=== PATIENT | female | born 1960 | race Caucasian/White ===

== ENCOUNTER → 2016-06-11 | Outpatient (CLI) | payer OTHER ==
--- NOTE | 2016-06-11 09:42 | CT ---
CT Right Knee (YANELY Protocol) History: Preop hemiarthroplasty. Degenerative arthritis of right knee. Technique: Radiopaque reference kumar was placed lateral to the right leg. Using dose reduction technol ogy, multidetector helical CT was performed through the right knee. Additional limited CT imaging was performed through the right hip and right ankle. Imaging data were transferred to the surgical plann ing computer. Findings: Medial tibiofemoral space shows moderately severe loss of thickness accompanied by mild sub luxation. Osteophytes are mild. A tiny subchondral cyst is noted in the medial tibial plateau. Minima l osteophytes are found around the lateral tibiofemoral space. The trochlear groove of the distal fem ur is shallow. Small osteophytes are found at the margins of the patellofemoral space. Multiple super ficial varicose tributaries of great saphenous vein are noted medially. Impression: 1. Degenerative arthritis of right knee. 2. Shallow trochlear groove of distal femur, without subluxation.
== END ==
LOC: FIMAGING 07:44
PROVIDERS: ATTEND Orthopaedic Surgery
DX: Z01.818 Encounter for other preprocedural examination (principal); M17.11 Unilateral primary osteoarthritis, right knee

== ENCOUNTER → 2017-01-04 | Outpatient (CLI) | payer OTHER | LOC: FIMAGING 07:38 | PROVIDERS: ATTEND Internal Medicine | DX: Z12.31 Encounter for screening mammogram for malignant neoplasm of breast (principal) | CPT/HCPCS: G0202 ==

== ENCOUNTER → 2017-02-11 | Outpatient (CLI) | payer OTHER | LOC: FIMAGING 07:52 | PROVIDERS: ATTEND Orthopaedic Surgery | DX: Z01.818 Encounter for other preprocedural examination (principal); M17.11 Unilateral primary osteoarthritis, right knee ==

== ENCOUNTER 2017-02-27 14:35 | Emergency (ER) | payer OTHER ==
[2017-02-27 14:56] VITALS: BP 128/77; PULSE 68; RESP 18; TEMP 98.2; O2SAT 93
[2017-02-27] MEDS ORDERED: HYDROCODONE/APAP 5/325 TAB PO ONE (15:06)
--- NOTE | 2017-02-27 15:17 | EDPHY ---
H & P Stated Complaint: right shoulder pain Time Seen by Provider: 02/27/17 14:59 HPI/ROS: Chief Complaint: Right shoulder injury HPI: 56-year-old woman was riding on a horse trauma cart when she fell off, landing on her right shoulder. She did not hit her head. No loss of conscious. No neck pain. No prior injury. She is complaining of deformity to her right collar bone. Family History: non-contributory Physical Exam: General: Awake, alert, no distress Right shoulder: There is an obvious right distal clavicle deformity. The skin is elevated but is not tenting. She has sensation over the deltoid and in all dermatomes of the right arm. She has no proximal humerus deformity. No scapular tenderness. She has decreased range of motion secondary to pain. He has 2+ radial ulnar pulses. Sensations intact in the radial, median, and ulnar nerve distribution. Skin: No rash - Personal History Current Tetanus Diphtheria and Acellular Pertussis (TDAP): Yes - Medical/Surgical History Hx Asthma: No Hx Chronic Respiratory Disease: No Hx Diabetes: No Hx Cardiac Disease: No Hx Renal Disease: No Hx Cirrhosis: No Hx Alcoholism: No Hx HIV/AIDS: No Hx Splenectomy or Spleen Trauma: No Other PMH: none - Social History Smoking Status: Never smoked Constitutional: Initial Vital Signs Temperature (C) 36.8 C 02/27/17 14:53 Heart Rate 68 02/27/17 14:53 Respiratory Rate 18 02/27/17 14:53 Blood Pressure 128/77 H 02/27/17 14:53 O2 Sat (%) 93 02/27/17 14:53 O2 Delivery Mode Room Air Allergies/Adverse Reactions: No Known Allergies Allergy (Verified 01/25/17 10:13) Home Medications: Medication Instructions Recorded Acyclovir 1,200 mg PO DAILY PRN 01/18/17 Estrogens,Conjugated [Premarin 0.5 g VG Q7D PRN 01/18/17 Vaginal (*)] Herbals/Supplements -Info Only 1 ea PO DAILY 01/18/17 Hydrocodone/Acetaminophen 1 - 2 each PO Q4-6PRN PRN #10 02/27/17 [Hydrocodon-Acetaminophen 5-325] tablet Ondansetron Odt [Zofran Odt 4 mg 4 mg PO Q4 PRN #10 tab 09/23/17 (*)] Medical Decision Making - Diagnostics Imaging Results: Imaging Impressions Clavicle X-Ray 02/27/17 15:07 Impression: Acute displaced right mid shaft clavicle fracture in bayonet configuration. Midshaft comminuted clavicle fracture with significant displacement. Imaging: I viewed and interpreted images myself ED Course/Re-evaluation: Patient has a comminuted midshaft clavicle fracture. She has been placed in a sling. She already has an appoint with Dr. Casarez on Wednesday for a knee replacement. She will follow up with him in the office. - Data Points Medications Given: Discontinued Medications Hydrocodone Bitart/Acetaminophen (Butner 5/325) 2 tab PO EDNOW ONE Stop: 02/27/17 15:07 Last Admin: 02/27/17 15:15 Dose: 2 tab Departure - Departure Disposition: Home, Routine, Self-Care Clinical Impression: Clavicle fracture Condition: Good Instructions: Clavicle Fracture (ED) Additional Instructions: Keep your arm in the sling until you see orthopedics. Follow-up with your orthopedist on Wednesday. Return to the emergency department for increasing pain, numbness or tingling in your right arm calms coloration of your right arm the, or any other concerns. Referrals: Amadou Casarez MD [Medical Doctor] - As per Instructions Prescriptions: Hydrocodone/Acetaminophen [Hydrocodon-Acetaminophen 5-325] 1 - 2 each PO Q4- 6PRN PRN #10 tablet PRN Reason: Pain, Severe Ondansetron Odt [Zofran Odt 4 mg (*)] 4 mg PO Q4 PRN #10 tab PRN Reason: nausea
[2017-02-27] MEDS ORDERED: ONDANSETRON DISINTEGRATING 4 MG TAB ONE (15:55)
== END 2017-02-27 16:15 | disposition home or self-care (01) ==
LOC: CED 14:35
DX: S42.021A Displaced fracture of shaft of right clavicle, initial encounter for closed fracture (principal); V80.010A Animal-rider injured by fall from or being thrown from horse in noncollision accident, initial encounter
CPT/HCPCS: 73000-PO; A4565

== ENCOUNTER 2017-03-11 11:38 | Day surgery (SDC) | payer OTHER ==
[2017-03-11] MEDS ORDERED: LIDOCAINE 1% 2 ML INJ ID PRN (12:19)
[2017-03-11] MEDS ORDERED: LR 1,000 ML IV ONE (12:19)
[2017-03-11] MEDS ORDERED: BUPIVACAINE 0.5% 30 ML SDV ONE (12:47)
[2017-03-11] MEDS ORDERED: POLYMYXIN B SULFATE 500,000 UNIT/10 ML SYR IRR ONE (12:47)
[2017-03-11] MEDS ORDERED: ceFAZolin 2 GM/DEXTROSE 100 ML IV ONE (12:57)
--- NOTE | 2017-03-11 13:17 | PDANEPAE ---
ANE History of Present Illness 56 yo F here with R clavicle fx here for ORIF ANE Past Medical History - Cardiovascular History Hx Hypertension: No Hx Arrhythmias: No Hx Chest Pain: No Hx Coronary Artery / Peripheral Vascular Disease: No Hx CHF / Valvular Disease: No Hx Palpitations: No - Pulmonary History Hx COPD: No Hx Asthma/Reactive Airway Disease: No Hx Recent Upper Respiratory Infection: No Hx Oxygen in Use at Home: No Hx Sleep Apnea: No Sleep Apnea Screening Result - Last Documented: Negative - Neurologic History Hx Cerebrovascular Accident: No Hx Seizures: No Hx Dementia: No - Endocrine History Hx Diabetes: No - Renal History Hx Renal Disorders: No - Liver History Hx Hepatic Disorders: No - Neurological & Psychiatric Hx Hx Neurological and Psychiatric Disorders: No - Cancer History Hx Cancer: No - Congenital Disorder History Hx Congenital Disorders: No - GI History Hx Gastrointestinal Disorders: No - Other Health History Other Health History: osteoarthritis to right knee and hands - Chronic Pain History Chronic Pain: Yes (right clavicle, right knee) - Surgical History Prior Surgeries: none ANE Review of Systems Review of Systems: - Exercise capacity METS (RN): 4 METS ANE Patient History - Allergies Allergies/Adverse Reactions: No Known Allergies Allergy (Verified 03/04/17 10:40) - Home Medications Home medications: home medication list seen and reviewed Home Medications: Acyclovir 1,200 mg PO DAILY PRN 01/18/17 [Last Taken 03/04/17] Estrogens,Conjugated [Premarin Vaginal (*)] 0.5 g VG Q7D PRN 01/18/17 [Last Taken 02/15/17] Herbals/Supplements -Info Only 1 ea PO DAILY 01/18/17 [Last Taken 02/15/17] IBUPROFEN 03/04/17 [Last Taken 03/04/17] - NPO status NPO Status: no food or drink >8 hours NPO Since - Liquids (Date): 03/10/17 NPO Since - Liquids (Time): 21:00 NPO Since - Solids (Date): 03/10/17 NPO Since - Solids (Time): 21:00 - Anes Hx Anes Hx: no prior problems - Smoking Hx Smoking Status: Never smoked - Alcohol Use Alcohol Use: Rarely - Family Anes Hx Family Anes Hx: none Family Hx Anesthesia Complications: none ANE Labs/Vital Signs - Vital Signs Blood Pressure: 135/79 Heart Rate: 70 Respiratory Rate: 14 O2 Sat (%): 97 Height: 166.37 cm Weight: 63.503 kg ANE Physical Exam - Airway Neck exam: FROM Mallampati Score: Class 1 Mouth exam: normal dental/mouth exam - Pulmonary Pulmonary: no respiratory distress, clear to auscultation - Cardiovascular Cardiovascular: regular rate and rhythym, no murmur, rub, or gallop - ASA Status ASA Status: II ANE Anesthesia Plan Anesthesia Plan: GA w LMA Regional Anesthesia: interscalene BP NB
[2017-03-11] MEDS ORDERED: MIDAZOLAM 2 MG/2 ML VIAL IVP ONE (13:18)
[2017-03-11] MEDS ORDERED: PROPOFOL 200 MG/20 ML VIAL ONE ×2 (13:31)
[2017-03-11] MEDS ORDERED: fentaNYL 100 MCG/2 ML INJ ONE (13:31)
[2017-03-11] MEDS ORDERED: LIDOCAINE 2% 100 MG/5 ML SYR ONE (13:32)
[2017-03-11] MEDS ORDERED: PHENYLEPHRINE HCL 100 MCG/ML SYR ONE ×2 (14:10)
[2017-03-11] MEDS ORDERED: ONDANSETRON 4 MG/2 ML VIAL ONE (14:29)
[2017-03-11] MEDS ORDERED: DEXAMETHASONE 4 MG/ML VIAL ONE (14:29)
[2017-03-11] MEDS ORDERED: BACITRACIN 50,000 UNITS/10 ML SYR IRR ONE (14:59)
[2017-03-11 15:00] VITALS: PULSE 72
[2017-03-11 16:07] VITALS: BP 112/77; RESP 16; O2SAT 95
[2017-03-11 18:26] VITALS: TEMP 97.5
== END 2017-03-11 16:20 | disposition home or self-care (01) ==
LOC: FSGY 11:38
PROVIDERS: ATTEND Orthopaedic Surgery
PROC: 0PS904Z Reposition Right Clavicle with Internal Fixation Device, Open Approach (ICD-10-PCS; principal; 2017-03-11 13:45)
DX: S42.021A Displaced fracture of shaft of right clavicle, initial encounter for closed fracture (principal); W19.XXXA Unspecified fall, initial encounter
CPT/HCPCS: C1713; J0690; J1100; J2001; J2250; J2370; J2405; J2704; J3010

== ENCOUNTER 2017-03-29 10:01 | Inpatient (IN) | payer OTHER ==
--- NOTE | 2017-03-11 10:50 | PDHPUP ---
History & Physical Update H&P update statement: This history and physical update is based on an assessment of the patient which was completed after admission or registration (within 24 hours), but prior to the surgery/procedure.
--- NOTE | 2017-03-29 06:47 | PDIAF ---
- Diagnosis Diagnosis: right medial knee arthritis Code Status: Full Code - Medication Management Discharge Medications: Medications to Continue on Transfer Acyclovir 400 mg PO TID PRN 01/18/17 [Last Taken 03/04/17] Estrogens,Conjugated [Premarin Vaginal (*)] 0.5 g VG Q3D PRN 01/18/17 [Last Taken 02/15/17] Herbals/Supplements -Info Only 1 ea PO DAILY 01/18/17 [Last Taken 02/15/17] Ibuprofen [Motrin (*)] 200 mg PO DAILY PRN #0 03/04/17 [Last Taken 03/04/17] Cholecalciferol Vit D3 [Vitamin D3 (*)] 1,000 units PO DAILY 03/18/17 [Last Taken Unknown] Glucosamine Sulfate [Glucosamine Sulfate 500 MG (*)] 500 mg PO DAILY 03/18/17 [ Last Taken Unknown] [place]-3 Fatty Acids [Fish Oil 1000 mg (*)] 1,000 mg PO DAILY 03/18/17 [Last Taken Unknown] Vitamin B Complex [B Complex] 1 each PO DAILY 03/18/17 [Last Taken Unknown] Discharge Medications: Refer to the Discharge Home Medication list for PRN reason. - Orders Services needed: Physical Therapy Activity/Weight Bearing Restrictions: daily dressing changes. may shower without bandage. no soaking or immersion. wbat. rom as tolerated. seek attn for increasing leg pain, swelling, drainage, other focal complaint - Follow Up Care Current Providers and Referrals: Clau Reyna MD [Primary Care Provider] -
[~2017-03-29 10:01] MED LIST: ceFAZolin 2 GM/DEXTROSE 100 ML IV ONE
[2017-03-29] MEDS ORDERED: ceFAZolin 2 GM/SWFI 2 GM/20 ML SYR IVP ONE (12:00)
[2017-03-29] MEDS ORDERED: LR 1,000 ML IV ONE (12:26)
[2017-03-29] MEDS ORDERED: LIDOCAINE 1% 2 ML INJ ID PRN (12:26)
--- NOTE | 2017-03-29 13:00 | PDANEPAE ---
ANE History of Present Illness 56 yo female with OA for R partial knee replacement. ANE Past Medical History - Cardiovascular History Hx Hypertension: No Hx Arrhythmias: No Hx Chest Pain: No Hx Coronary Artery / Peripheral Vascular Disease: No Hx CHF / Valvular Disease: No Hx Palpitations: No - Pulmonary History Hx COPD: No Hx Asthma/Reactive Airway Disease: No Hx Recent Upper Respiratory Infection: No Hx Oxygen in Use at Home: No Hx Sleep Apnea: No Sleep Apnea Screening Result - Last Documented: Negative - Neurologic History Hx Cerebrovascular Accident: No Hx Seizures: No Hx Dementia: No - Endocrine History Hx Diabetes: No Hypothyroid: No - Renal History Hx Renal Disorders: No - Liver History Hx Hepatic Disorders: No - Neurological & Psychiatric Hx Hx Neurological and Psychiatric Disorders: No - Cancer History Hx Cancer: No - Congenital Disorder History Hx Congenital Disorders: No - GI History Hx Gastrointestinal Disorders: No - Other Health History Other Health History: osteoarthritis to right knee and hands - Chronic Pain History Chronic Pain: Yes (R KNEE) - Surgical History Prior Surgeries: CLAVICLE ORIF ANE Review of Systems Review of systems is: negative Review of Systems: - Exercise capacity METS (RN): 4 METS - Systems Constitutional: Reports: no symptoms Cardiac: Reports: no symptoms Respiratory: Reports: no symptoms ANE Patient History - Allergies Allergies/Adverse Reactions: No Known Allergies Allergy (Verified 03/04/17 10:40) - Home Medications Home medications: home medication list seen and reviewed Home Medications: Acyclovir 400 mg PO TID PRN 01/18/17 [Last Taken 03/04/17] Estrogens,Conjugated [Premarin Vaginal (*)] 0.5 g VG Q3D PRN 01/18/17 [Last Taken 03/01/17] Herbals/Supplements -Info Only 1 ea PO DAILY 01/18/17 [Last Taken 03/18/17] Ibuprofen [Motrin (*)] 200 mg PO DAILY PRN #0 03/04/17 [Last Taken 03/18/17] Cholecalciferol Vit D3 [Vitamin D3 (*)] 1,000 units PO DAILY 03/18/17 [Last Taken 03/18/17] Glucosamine Sulfate [Glucosamine Sulfate 500 MG (*)] 500 mg PO DAILY 03/18/17 [ Last Taken 03/15/17] [place]-3 Fatty Acids [Fish Oil 1000 mg (*)] 1,000 mg PO DAILY 03/18/17 [Last Taken 03/15/17] Vitamin B Complex [B Complex] 1 each PO DAILY 03/18/17 [Last Taken 03/15/17] - NPO status NPO Status: no food or drink >8 hours - Anes Hx Anes Hx: no prior problems - Smoking Hx Smoking Status: Never smoked Marijuana use: No - Alcohol Use Alcohol Use: Rarely - Family Anes Hx Family Anes Hx: neg - N/A Family Hx Anesthesia Complications: none ANE Labs/Vital Signs - Vital Signs Vital Signs: reviewed preoperatively; see RN documention for details Blood Pressure: 127/82 Heart Rate: 81 O2 Sat (%): 95 Height: 166.37 cm Weight: 63.503 kg ANE Physical Exam - Airway Neck exam: FROM Mallampati Score: Class 1 Mouth exam: normal dental/mouth exam - Pulmonary Pulmonary: clear to auscultation - Cardiovascular Cardiovascular: regular rate and rhythym - ASA Status ASA Status: II ANE Anesthesia Plan Anesthesia Plan: general endotracheal anesthesia Regional Anesthesia: adductor canal FNB
[2017-03-29] MEDS ORDERED: CALCIUM CHLORIDE 1 GM/10 ML INJ ONE (13:08)
[2017-03-29] MEDS ORDERED: THROMBIN (BOVINE) 5,000 UNIT VIAL TP ONE (13:08)
[2017-03-29] MEDS ORDERED: PROPOFOL/EMULSION 500 MG/50 ML BOTTLE IV ONE (13:23)
[2017-03-29] MEDS ORDERED: fentaNYL 250 MCG/5 ML INJ ONE (13:23)
[2017-03-29] MEDS ORDERED: LIDOCAINE 2% 5 ML SDV ONE (13:24)
[2017-03-29] MEDS ORDERED: ROCURONIUM 50 MG/5 ML VIAL ONE (13:24)
[2017-03-29] MEDS ORDERED: DEXAMETHASONE 4 MG/ML VIAL ONE (13:24)
[2017-03-29] MEDS ORDERED: ROPI/epINEPH/KETOROLAC/morphINE IU ONE (13:30)
[2017-03-29] MEDS ORDERED: ceFAZolin 2 GM/SWFI 20 ML SYR IVP ONE (13:47)
[2017-03-29] MEDS ORDERED: BUPIVACAINE 0.5% 30 ML SDV ONE (14:13)
[2017-03-29] MEDS ORDERED: TEMAZEPAM 15 MG CAP PO PRN (14:14)
[2017-03-29] MEDS ORDERED: ONDANSETRON DISINTEGRATING 4 MG TAB PO PRN (14:14)
[2017-03-29] MEDS ORDERED: METOCLOPRAMIDE 10 MG/2 ML VIAL IVP PRN (14:14)
[2017-03-29] MEDS ORDERED: POLYETHYLENE GLYCOL 3350 17 GM PKT PO PRN (14:14)
[2017-03-29] MEDS ORDERED: traMADol 50 MG TAB PO PRN (14:14)
[2017-03-29] MEDS ORDERED: diphenhydrAMINE 25 MG CAP PO PRN (14:14)
[2017-03-29] MEDS ORDERED: DIPHENOXYLATE/ATROPINE LOMOTIL 1 TAB PO PRN (14:14)
[2017-03-29] MEDS ORDERED: ONDANSETRON 4 MG/2 ML VIAL IVP PRN (14:14)
[2017-03-29] MEDS ORDERED: DIAZEPAM 5 MG TAB PO PRN (14:14)
[2017-03-29] MEDS ORDERED: BISACODYL 10 MG SUPP PR PRN (14:14)
[2017-03-29] MEDS ORDERED: oxyCODONE IR 5 MG TAB PO PRN (14:14)
[2017-03-29] MEDS ORDERED: LACTULOSE 20 GM/30 ML UDCUP PO PRN (14:14)
[2017-03-29] MEDS ORDERED: PROMETHAZINE HCL 25 MG SUPPR PR PRN (14:14)
[2017-03-29] MEDS ORDERED: PROMETHAZINE HCL 25 MG/ML INJ IVP PRN ×2 (14:14→16:08)
[2017-03-29] MEDS ORDERED: MAGNESIUM HYDROXIDE 30 ML UDCUP PO PRN (14:14)
[2017-03-29] MEDS ORDERED: ONDANSETRON 4 MG/2 ML VIAL ONE ×2 (14:25→16:30)
[2017-03-29] MEDS ORDERED: LR 1,000 ML IV SCH (14:30)
[2017-03-29] MEDS ORDERED: SUGAMMADEX SODIUM 200 MG/2 ML VIAL IVP ONE (15:09)
[2017-03-29] MEDS ORDERED: NALOXONE HCL 0.4 MG/ML INJ IVP PRN (16:08)
[2017-03-29] MEDS ORDERED: OXYCODONE/APAP 5/325 TAB PO PRN (16:08)
[2017-03-29] MEDS ORDERED: fentaNYL 100 MCG/2 ML INJ IVP PRN (16:08)
[2017-03-29] MEDS ORDERED: LR 500 ML IV PRN (16:08)
[2017-03-29] MEDS ORDERED: ALBUTEROL 3 ML DEYVIAL IH PRN (16:08)
[2017-03-29] MEDS ORDERED: ACETAMINOPHEN 500 MG TAB PO PRN (16:08)
[2017-03-29] MEDS ORDERED: DIAZEPAM 10 MG/2 ML SYR IVP PRN (16:09)
--- NOTE | 2017-03-29 16:23 | POSTANESTH ---
Post Anesthetic Evaluation Cardiovascular Status: Normal, Stable Respiratory Status: Normal, Stable Level of Consciousness/Mental Status: Can Participate in Eval, Mildly Sleepy, Arousable Pain Control: Adequate, Prn Tx Ordered Nausea/Vomiting Control: Adequate, Prn Tx Ordered Complications Possibly Related to Anesthesia: None Noted (Pt having increasing pain as adductor canal block performed. After block, knee not hurting but hip is. Given Valium to reduce muscle spasm.)
[2017-03-29] MEDS ORDERED: OXYCODONE/APAP 5/325 TAB ONE (16:31)
[2017-03-29] MEDS: TRANEXAMIC ACID 650 MG TAB PO SCH ×2 (17:59→22:03)
[2017-03-29] MEDS: ACETAMINOPHEN 325 MG TAB PO SCH ×2 (18:35→23:49)
[2017-03-29] MEDS ORDERED: ceFAZolin 2 GM/DEXTROSE 100 ML IV SCH (22:00)
[2017-03-29] MEDS: ceFAZolin 2 GM in D5W 100 ML IV SCH (22:02)
[2017-03-29] MEDS: FAMOTIDINE 20 MG TAB PO SCH (22:03)
[2017-03-29] MEDS: SENNOSIDES/DOCUSATE SODIUM TAB PO SCH (22:03)
[2017-03-29] MEDS: ASPIRIN 325 MG TAB PO SCH (22:03)
[2017-03-30 04:35] VITALS: PULSE 67
[2017-03-30] MEDS: TRANEXAMIC ACID 650 MG TAB PO SCH (04:40)
[2017-03-30] MEDS: ACETAMINOPHEN 325 MG TAB PO SCH (04:41)
[2017-03-30] MEDS: ceFAZolin 2 GM in D5W 100 ML IV SCH (04:42)
[2017-03-30 05:07] LABS: HEMATOCRIT 31.2 % (38.0-47.0); HEMOGLOBIN 10.8 g/dL (12.6-16.3)
[2017-03-30 07:20] VITALS: BP 94/67; RESP 15; TEMP 97.5; O2SAT 97
[2017-03-30] MEDS: FAMOTIDINE 20 MG TAB PO SCH (07:58)
[2017-03-30] MEDS: ASPIRIN 325 MG TAB PO SCH (07:58)
[2017-03-30] MEDS: SENNOSIDES/DOCUSATE SODIUM TAB PO SCH (07:58)
--- NOTE | 2017-03-30 09:54 | GDS ---
[f rep st] DISCHARGE SUMMARY ADMIT DIAGNOSIS: Right knee medial joint arthritis. POSTOPERATIVE DIAGNOSIS: Right knee medial joint arthritis. PROCEDURE: Right knee medial MAKOplasty. HISTORY OF PRESENT ILLNESS: The patient is a 56-year-old woman who has end-stage arthritis to the me dial compartment of her right knee. Clinical and radiographic features are consistent with this. Sh cedric has failed all attempts at conservative management. I have therefore recommended operative interve ntion. I have outlined the surgical procedure, risks, benefits, and alternatives. She wished to pro ceed. Written consent was signed and placed in patient's chart. HOSPITAL COURSE: The patient was admitted to the hospital floor after uncomplicated partial knee rep lacement. She tolerated the procedure well. At the time of discharge, she is tolerating an oral t. Her pain is well controlled on oral medicines. She is voiding without difficulty. Dressing is c lean, dry, and intact. Incision is clean, dry, and intact. She has no calf swelling or tenderness. Negative Homans. X-rays are stable. DISCHARGE ACTIVITY: She is weightbearing as tolerated. Range of motion as tolerated. Daily dressin g changes. No soaking or immersion. May shower without the bandage. FOLLOWUP: In 2 weeks. Seek attention for increasing redness, swelling, drainage, or discharge. DISCHARGE MEDICATIONS: Oxycodone 5 mg 1-2 every 3 hours p.r.n. pain. /[id number]/MODL
--- NOTE | 2017-03-30 10:14 | ASMTCMCOM ---
CM Note CM Note Notes: Patient is POD #1 R medial partial knee replacement. I spoke with her about home PT; she is already seeing an outpatient PT for another injury and prefers to do her PT there. STAR Elaine confirms that patient does not need homecare. She will not be homebound. CM available if needs change. Date Signed: 03/30/2017 10:13 AM Electronically Signed By:Lavinia Carnes RN
--- NOTE | 2017-03-30 14:52 | ASDISCHSUM ---
Discharge Information Plan Status:Home with No Needs Medically Cleared to Leave: Discharge Date:03/30/2017 11:47 AM CM D/C Disposition:Home, Routine, Self-Care ADT D/C Disposition:Home, Routine, Self-Care Projected Discharge Date:03/30/2017 11:47 AM Transportation at D/C:Family Discharge Delay Reason: Follow-Up Date:03/30/2017 11:47 AM Discharge Slot: Final Diagnosis: Placement Information Patient Contact Information Contact Name:AGATHA Relationship: Address:[address] [place] Alternate Phone: [facility]/Zip Code:[place] [address] Email: Financial Information Financial Class:[facility] Primary Plan Desc:[facility] Primary Plan Number:[id number] Secondary Plan Desc: Secondary Plan Number: Assessment Information [facility] CM Progress Note CM Note CM Note Notes: Patient is POD #1 R medial partial knee replacement. I spoke with her about home PT; she is already seeing an outpatient PT for another injury and prefers to do her PT there. STAR Elaine confirms that patient does not need homecare. She will not be homebound. CM available if needs change. Date Signed: 03/30/2017 10:13 AM Electronically Signed By:Lavinia Carnes RN Intervention Information
--- NOTE | 2017-04-02 15:33 | GOP ---
[f rep st] OPERATIVE REPORT DATE OF OPERATION: 03/29/2017 SURGEON: Amadou Casarez MD CHURCH SUPERVISOR: Kar Mesa, MACHINIST BENCH, [facility], who was a medical necessity for the entirety of the case. PREOPERATIVE DIAGNOSIS: Right knee medial compartment arthritis. POSTOPERATIVE DIAGNOSIS: Right knee medial compartment arthritis. PROCEDURE PERFORMED: Right knee partial knee replacement, MAKOplasty, medial compartment. FINDINGS: SPECIMENS: To Pathology: None. DESCRIPTION OF PROCEDURE: The patient was identified in the preanesthesia area. The right knee ujan rly demarcated as operative site with indelible marker. She was given 2 g of Ancef intravenously en route to the operative suite. In the OR, general endotracheal anesthesia was administered. Attentio n was turned to the right knee, which was sterilely prepped and draped in usual fashion. A tournique t was applied to the upper thigh. The limb was then exsanguinated and the tourniquet inflated to 275 mmHg. Appropriate time-out procedure had been carried out. An anterior midline incision was made. Thick subcutaneous flaps were elevated followed by medial parapatellar arthrotomy. There was grade 2, and small areas of grade 3, chondral change in the patellofemoral articulation and [id number] ar ticulation medially. The lateral compartment demonstrated relatively normal cartilage surfaces. The decision was made to proceed with medial compartment MAKOplasty. A femoral and tibial reference arr ay were affixed over guide pins in the femur and tibia. The femoral and tibial checkpoints were plac ed. The bony landmarks were all entered into the computer. The knee was taken through flexion and e xtension and balanced throughout the range. Minor adjustments to the preoperative plan were facilita rodger. Using the MAKOplasty robot, the etchings for a size 3 femur and size 3 tibia were then created. Trial reduction was carried out with an 8 mm thick polyethylene. This restored neutral limb alignm ent and full flexion/extension arc. Trial components were withdrawn. The bony surfaces were thoroug hly cleansed and dried, and in a sequential fashion, the tibial and femoral components were cemented. All marginal cement was withdrawn. Then a 3 x 8 mm polyethylene spacer was placed and confirmed to be fully seated. The arthrotomy was closed using #1 Ethibond suture. The knee instilled with plate let-rich plasma, and the soft tissues injected with a joint cocktail of ropivacaine, morphine, [place] l, and epinephrine. The subcutaneous tissue was closed using a Quill Monocryl suture and jan. S terile dressing was applied, and the patient was awakened, extubated, and taken to the recovery room in good and stable condition. OPERATIVE INDICATIONS: The patient is a 56-year-old woman who has end-stage arthritis to her right k nee medial compartment and moderate arthritis to her patellofemoral compartment. Given her clinical radiographic features, I have recommended partial knee replacement as she has failed all attempts at conservative management. She understood the risks, benefits, and alternatives and wished to proceed. Written consent was signed and placed in patient's chart. TOTAL TOURNIQUET TIME: 40 minutes. COMPLICATIONS: None. IMPLANTS: The Noah MAKOplasty Restoris medial compartment, size 3 X3 unicompartmental tibial poly ethylene insert size 3 x 8 mm, and the tibial base plate size 3. DISPOSITION: To the recovery room then the floor. She is weightbearing and range of motion as westley ated. /[id number]/MODL
== END 2017-03-30 11:47 | disposition home or self-care (01) | DRG 470 ==
LOC: F3N 11:35
PROVIDERS: ADMIT Orthopaedic Surgery; ATTEND Orthopaedic Surgery
PROC: 0SRC0J9 Replacement of Right Knee Joint with Synthetic Substitute, Cemented, Open Approach (ICD-10-PCS; principal; 2017-03-29 14:15)
DX: M17.11 Unilateral primary osteoarthritis, right knee (principal)
CPT/HCPCS: 97161-GP; 97165-GO; C1713; J0171; J0690; J1100; J1885; J2405; J2704; J2795; J3010

== ENCOUNTER → 2017-04-13 | Outpatient (CLI) | payer OTHER | LOC: BMCIMAGING 12:56 | PROVIDERS: ATTEND Orthopaedic Surgery | DX: Z47.1 Aftercare following joint replacement surgery (principal); Z96.651 Presence of right artificial knee joint; M25.461 Effusion, right knee ==

== ENCOUNTER → 2017-05-11 | Outpatient (CLI) | payer OTHER | LOC: BMCIMAGING 09:00 | PROVIDERS: ATTEND Orthopaedic Surgery | DX: Z47.1 Aftercare following joint replacement surgery (principal); M25.461 Effusion, right knee; S42.001D Fracture of unspecified part of right clavicle, subsequent encounter for fracture with routine healing; Z96.651 Presence of right artificial knee joint ==

== ENCOUNTER → 2017-06-22 | Outpatient (CLI) | payer OTHER | LOC: BMCIMAGING 14:42 | PROVIDERS: ATTEND Orthopaedic Surgery | DX: Z98.890 Other specified postprocedural states (principal); Z96.651 Presence of right artificial knee joint ==

== ENCOUNTER → 2017-09-20 | Outpatient (CLI) | payer OTHER | LOC: BMCIMAGING 14:50 | PROVIDERS: ATTEND Orthopaedic Surgery | DX: Z96.651 Presence of right artificial knee joint (principal) ==

== ENCOUNTER → 2018-02-22 | Outpatient (CLI) | payer OTHER | LOC: FIMAGING 10:42 | PROVIDERS: ATTEND Internal Medicine | DX: Z12.31 Encounter for screening mammogram for malignant neoplasm of breast (principal) ==

== ENCOUNTER → 2018-03-23 | Outpatient (CLI) | payer OTHER | LOC: BMCIMAGING 14:24 | PROVIDERS: ATTEND Orthopaedic Surgery | DX: Z47.1 Aftercare following joint replacement surgery (principal); Z96.651 Presence of right artificial knee joint ==

== ENCOUNTER 2018-05-06 05:37 | Day surgery (SDC) | payer OTHER ==
[2018-05-06] MEDS ORDERED: ceFAZolin 2 GM/DEXTROSE 100 ML IV ONE (05:52)
[2018-05-06] MEDS ORDERED: LR 1,000 ML IV ONE (05:53)
[2018-05-06] MEDS ORDERED: LIDOCAINE 1% 2 ML INJ ID PRN (05:53)
--- NOTE | 2018-05-06 06:01 | POSTANESTH ---
Post Anesthetic Evaluation Cardiovascular Status: Normal, Stable Respiratory Status: Normal, Stable Level of Consciousness/Mental Status: Can Participate in Eval, Mildly Sleepy, Arousable Pain Control: Adequate, Prn Tx Ordered Nausea/Vomiting Control: Adequate, Prn Tx Ordered Complications Possibly Related to Anesthesia: None Noted
--- NOTE | 2018-05-06 06:03 | PDANEPAE ---
ANE History of Present Illness 57 yo female with umbilical hernia for open repair today. ANE Past Medical History - Cardiovascular History Hx Hypertension: No Hx Arrhythmias: No Hx Chest Pain: No Hx Coronary Artery / Peripheral Vascular Disease: No Hx CHF / Valvular Disease: No Hx Palpitations: No Cardiovascular History Comment: elevated LDL on 2018 labs. anemia on 2018 labs - Pulmonary History Hx COPD: No Hx Asthma/Reactive Airway Disease: No Hx Recent Upper Respiratory Infection: No Hx Oxygen in Use at Home: No Hx Sleep Apnea: No Sleep Apnea Screening Result - Last Documented: Negative - Neurologic History Hx Cerebrovascular Accident: No Hx Seizures: No Hx Dementia: No - Endocrine History Hx Diabetes: No Hypothyroid: No Obesity: no - Renal History Hx Renal Disorders: No - Liver History Hx Hepatic Disorders: No - Neurological & Psychiatric Hx Hx Neurological and Psychiatric Disorders: No - Cancer History Hx Cancer: No - Congenital Disorder History Hx Congenital Disorders: No - GI History Hx Gastrointestinal Disorders: No - Other Health History Other Health History: ECZEMA MILD - Chronic Pain History Chronic Pain: No - Surgical History Prior Surgeries: PARTIAL R KNEE. CLAVICLE ORIF ANE Review of Systems Review of Systems: - Exercise capacity METS (RN): 5 METS - Systems Constitutional: Reports: no symptoms Cardiac: Reports: no symptoms Respiratory: Reports: no symptoms Gastrointestinal: Reports: no symptoms ANE Patient History - Allergies Allergies/Adverse Reactions: No Known Allergies Allergy (Verified 03/04/17 10:40) - Home Medications Home Medications: Acyclovir 400 mg PO TID PRN 01/18/17 [Last Taken 03/04/17] Estrogens,Conjugated [Premarin Vaginal (*)] 0.5 g VG Q3D PRN 01/18/17 [Last Taken 05/01/18] Herbals/Supplements -Info Only 1 ea PO DAILY 01/18/17 [Last Taken 04/27/18] Ibuprofen [Motrin (*)] 200 mg PO DAILY PRN #0 03/04/17 [Last Taken 04/27/18] Cholecalciferol Vit D3 [Vitamin D3 (*)] 1,000 units PO DAILY 03/18/17 [Last Taken 04/27/18] Glucosamine Sulfate [Glucosamine Sulfate 500 MG (*)] 500 mg PO DAILY 03/18/17 [ Last Taken 04/27/18] [place]-3 Fatty Acids [Fish Oil 1000 mg (*)] 1,000 mg PO DAILY 03/18/17 [Last Taken 04/27/18] Vitamin B Complex [B Complex] 1 each PO DAILY 03/18/17 [Last Taken 04/27/18] - NPO status NPO Since - Liquids (Date): 05/06/18 NPO Since - Liquids (Time): 04:00 - Anes Hx Anes Hx: no prior problems - Smoking Hx Smoking Status: Never smoked - Family Anes Hx Family Anes Hx: neg - N/A Family Hx Anesthesia Complications: none ANE Labs/Vital Signs - Vital Signs Vital Signs: reviewed preoperatively; see RN documention for details Height: 166.37 cm Weight: 63.503 kg ANE Physical Exam - Airway Neck exam: FROM Mallampati Score: Class 1 Mouth exam: normal dental/mouth exam - Pulmonary Pulmonary: clear to auscultation - Cardiovascular Cardiovascular: regular rate and rhythym - ASA Status ASA Status: II ANE Anesthesia Plan Anesthesia Plan: GA w LMA (If surgeon does not require muscle relaxation, o/w GETA)
[2018-05-06] MEDS ORDERED: BUPIVACAINE 0.5% 30 ML SDV ONE (07:00)
--- NOTE | 2018-05-06 07:01 | PDHPUP ---
History & Physical Update H&P update statement: This history and physical update is based on an assessment of the patient which was completed after admission or registration (within 24 hours), but prior to the surgery/procedure. H&P update: H&P reviewed & patient examined, no change in patient's condition since H&P completed
[2018-05-06] MEDS ORDERED: DEXAMETHASONE 4 MG/ML VIAL ONE (07:09)
[2018-05-06] MEDS ORDERED: LIDOCAINE 2% 2 ML INJ ONE (07:09)
[2018-05-06] MEDS ORDERED: fentaNYL 100 MCG/2 ML INJ ONE (07:09)
[2018-05-06] MEDS ORDERED: PROPOFOL 200 MG/20 ML VIAL ONE ×2 (07:09)
[2018-05-06] MEDS ORDERED: ONDANSETRON 4 MG/2 ML VIAL ONE (07:30)
--- NOTE | 2018-05-06 07:42 | POSTOPPROG ---
Post Op Note Date of Operation: 05/06/18 Surgeon: Mesha Woodward Anesthesiologist: raymon Anesthesia: GET(General Endotracheal) Pre-op Diagnosis: incarcerated umbilical hernia Post-op Diagnosis: same Indication: 57 yo with incarcerated umbilical hernia Procedure: umbilical hernia repair Findings: incarcerated omentum, defect <1 cm Inf/Abcess present in the surg proc area at time of surgery?: No Depth: Superfical (Skin SQ)
[2018-05-06] MEDS ORDERED: ACETAMINOPHEN 500 MG TAB PO PRN (07:43)
[2018-05-06] MEDS ORDERED: PROMETHAZINE HCL 25 MG/ML INJ IVP PRN (07:43)
[2018-05-06] MEDS ORDERED: ALBUTEROL 3 ML DEYVIAL IH PRN (07:43)
[2018-05-06] MEDS ORDERED: LR 500 ML IV PRN (07:43)
[2018-05-06] MEDS ORDERED: HYDROCODONE/APAP 5/325 TAB PO PRN (07:43)
[2018-05-06] MEDS ORDERED: fentaNYL 100 MCG/2 ML INJ IVP PRN (07:43)
[2018-05-06] MEDS ORDERED: NALOXONE HCL 0.4 MG/ML INJ IVP PRN (07:43)
[2018-05-06] MEDS ORDERED: KETOROLAC 30 MG/1 ML SDV ONE (07:46)
--- NOTE | 2018-05-06 08:30 | GOP ---
DATE OF OPERATION: 05/06/2018 SURGEON: Mesha Woodward MD CLINICAL TECHNOLOGIST: Natalia Nix, GEOVANY ANESTHESIA: General. ANESTHESIOLOGIST: Lashon Jimenez MD PREOPERATIVE DIAGNOSIS: Incarcerated umbilical hernia. POSTOPERATIVE DIAGNOSIS: Incarcerated umbilical hernia. PROCEDURE PERFORMED: Umbilical hernia repair. FINDINGS: Incarcerated omentum. No bowel. SPECIMENS: None. ESTIMATED BLOOD LOSS: 5 cc. INDICATIONS: The patient is a 57-year-old woman who presented with a tender supraumbilical hernia. DESCRIPTION OF PROCEDURE: The patient was brought into the operating room, placed supine on the tabl e, and general anesthesia was administered. Her abdomen was prepped and draped in the usual sterile fashion. I infiltrated the area with 0.5% Marcaine prior to making incision. I made an incision angelina eath the umbilicus. I dissected down through the skin and subcutaneous tissue. I the umbi licus from the fascia. There was incarcerated omentum in this area. I amputated the omentum. Hemos tasis achieved. I cleared the investing tissue above and below the fascia. I closed the fascia with 1 figure-eight suture of 0 PDS. I created a neoumbilicus with 2-0 Vicryl. I closed the skin with 3 -0 Vicryl followed by 4-0 Monocryl. Mastisol, Steri-Strips, cotton ball, and Tegaderm were applied. She was awakened in the operating room, extubated, transferred to PACU in stable condition. /[id number]/MODL
[2018-05-06 09:09] VITALS: BP 117/73
== END 2018-05-06 10:20 | disposition home or self-care (01) ==
LOC: FSGY 05:37
PROVIDERS: ATTEND Surgery
PROC: 0WQF0ZZ Repair Abdominal Wall, Open Approach (ICD-10-PCS; principal; 2018-05-06 07:15)
DX: K42.0 Umbilical hernia with obstruction, without gangrene (principal); E78.5 Hyperlipidemia, unspecified; Z79.82 Long term (current) use of aspirin; Z82.5 Family history of asthma and other chronic lower respiratory diseases; Z96.651 Presence of right artificial knee joint
CPT/HCPCS: J0690; J1100; J1885; J2405; J2704; J3010